=== PATIENT | male | born 1970 | race Caucasian/White ===

== ENCOUNTER → 2017-04-29 | Outpatient (CLI) | payer BC ==
--- NOTE | 2017-04-29 15:35 | US ---
EXAMINATION TYPE: US scrotum with doppler. Grayscale and color Doppler Duplex imaging performed of t he scrotum. DATE OF EXAM: 04/29/2017 COMPARISON: NONE CLINICAL HISTORY: Swelling of Left Testical N50.89. EXAM MEASUREMENTS: TESTICLES: Right Testicle: 5.0 x 2.7 x 3.1 cm Left Testicle: 4.6 x 2.2 x 3.5 cm EPIDIDYMIS HEAD: Right Epididymis: 1.1 x 1.2 x 0.7 cm Left Epididymis: 1.3 x 0.9 x 0.8 cm Doppler performed to assess for testicular vascularity; good bilateral color flow and waveforms are s een. Presence of hydroceles: no Presence of varicoceles: mild varicoceles left inguina Comparison images at end of study shows symmetric blood flow to both testicles. IMPRESSION: No suspicious scrotal fluid collections or hydroceles. No worrisome intratesticular mass is present.
== END | disposition home or self-care (01) ==
LOC: RADUSWWP 14:41
PROVIDERS: ATTEND Family Medicine
DX: N50.89 Other specified disorders of the male genital organs (principal)
CPT/HCPCS: 76870; 93975

== ENCOUNTER 2024-08-16 03:24 | Emergency (ER) | payer BC ==
--- NOTE | 2024-08-16 04:30 | ED ---
SOB HPI - General Chief Complaint: Shortness of Breath Stated Complaint: Chest Pain,ROCK Time Seen by Provider: 08/16/24 03:34 Source: patient Mode of arrival: wheelchair Limitations: no limitations - History of Present Illness Initial Comments: This patient is a 54-year-old man who presents to have evaluation for cough and congestion with some yellow sputum, going back approximately 3 to 4 days now. The patient states he has also had a little bit of chest tightness bilaterally. Patient tonight was noting fever and chills as well. He states that when he thinks back he has had intermittent symptoms coming and going since about Page time. Over the past 3 to 4 days the symptoms recurred and he feels worse lying down. MD Complaint: shortness of breath, cough Onset/Timin -: days(s) Severity: mild Quality: dull Consistency: intermittent Improves With: nothing Worsens With: lying flat Associated Symptoms: fever, cough, sputum production Treatments Prior to Arrival: none - Related Data Home Oxygen Therapy: No Previous Rx's Medication Instructions Recorded Azithromycin [Zithromax] 0 mg PO DIRECTED #6 tab 08/16/24 Allergies Allergy/AdvReac Type Severity Reaction Status Date / Time No Known Allergies Allergy Verified 08/16/24 03:31 Review of Systems ROS Statement: Those systems with pertinent positive or pertinent negative responses have been documented in the HPI. ROS Other: All systems not noted in ROS Statement are negative. Constitutional: Reports: fever, chills Respiratory: Reports: cough. Denies: dyspnea, wheezes, hemoptysis Cardiovascular: Reports: chest pain. Denies: palpitations, edema, syncope Gastrointestinal: Denies: abdominal pain, nausea, vomiting, diarrhea Genitourinary: Denies: dysuria, hematuria Musculoskeletal: Denies: back pain Skin: Denies: rash Neurological: Denies: headache, weakness, numbness Past Medical History Past Medical History: Hypertension History of Any Multi-Drug Resistant Organisms: None Reported Past Surgical History: No Surgical Hx Reported Past Psychological History: No Psychological Hx Reported Smoking Status: Former smoker, Vaper Past Alcohol Use History: None Reported Past Drug Use History: None Reported General Exam Limitations: no limitations General appearance: alert, in no apparent distress Head exam: Present: atraumatic, normocephalic Eye exam: Present: normal appearance. Absent: scleral icterus, conjunctival injection Neck exam: Present: normal inspection Respiratory exam: Present: rhonchi. Absent: respiratory distress, wheezes, rales, stridor, accessory muscle use, decreased breath sounds, prolonged expiratory Cardiovascular Exam: Present: normal rhythm, tachycardia, normal heart sounds. Absent: systolic murmur, diastolic murmur, rubs, gallop GI/Abdominal exam: Present: soft. Absent: distended, tenderness, guarding, rebound, rigid, mass Extremities exam: Present: normal inspection, normal capillary refill. Absent: pedal edema, calf tenderness Back exam: Present: normal inspection. Absent: CVA tenderness (R), CVA tenderness (L) Neurological exam: Present: alert Skin exam: Present: warm, dry, intact, normal color. 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 - Lab Data Result diagrams: 08/16/24 03:46 08/16/24 03:46 Lab Results 08/16/24 08/16/24 08/16/24 Range/Units 03:46 03:46 03:46 WBC 18.68 H (4.50-10.00) 10*3/uL RBC 5.08 (4.40-5.60) 10*6/uL Hgb 15.5 (13.0-17.0) g/dL Hct 43.9 (39.6-50.0) % MCV 86.4 (80.0-97.0) fL MCH 30.5 (27.0-32.0) pg MCHC 35.3 (32.0-37.0) g/dL Plt Count 240 (140-440) 10*3/uL MPV 9.6 (9.5-12.2) fL Immature Gran % (Auto) 0.5 % Neutrophils % 89.6 % Lymphocytes % 4.9 % Monocytes % 3.3 % Eosinophils % 1.3 % Basophils % 0.4 % Immature Gran # 0.10 H (0.00-0.04) 10*3/uL Neutrophils # 16.71 H (1.80-7.70) 10*3/uL Lymphocytes # 0.92 (0.90-5.00) 10*3/uL Monocytes # 0.62 (0.20-1.00) 10*3/uL Eosinophils # 0.25 (0.04-0.35) 10*3/uL Basophils # 0.08 (0.00-0.10) 10*3/uL PT 10.3 (10.0-12.5) sec INR 0.9 (<1.2) APTT 24.5 (22.0-30.0) sec D-Dimer 0.42 (<0.60) mg/L FEU Sodium 136 L (137-145) mmol/L Potassium 4.7 (3.5-5.1) mmol/L Chloride 103 (98-107) mmol/L Carbon Dioxide 23 (22-30) mmol/L Anion Gap 10 mmol/L BUN 19 (9-20) mg/dL Creatinine 1.08 (0.66-1.25) mg/dL Est GFR (CKD-EPI)AfAm >90 (>60 ml/min/1.73 sqM) Est GFR (CKD-EPI)NonAf 78 (>60 ml/min/1.73 sqM) Glucose 134 H (74-99) mg/dL Plasma Lactic Acid Justin (0.7-2.0) mmol/L Calcium 9.9 (8.4-10.2) mg/dL Total Bilirubin 0.7 (0.2-1.3) mg/dL AST 40 (17-59) U/L ALT 26 (4-49) U/L Alkaline Phosphatase 66 (38-126) U/L Troponin I (0.000-0.034) ng/mL NT-Pro-B Natriuret Pep <20 pg/mL Total Protein 7.5 (6.3-8.2) g/dL Albumin 4.3 (3.5-5.0) g/dL Influenza Type A (PCR) (Not Detectd) Influenza Type B (PCR) (Not Detectd) RSV (PCR) (Not Detectd) SARS-CoV-2 (PCR) (Not Detectd) 08/16/24 08/16/24 08/16/24 Range/Units 03:46 04:14 05:52 WBC (4.50-10.00) 10*3/uL RBC (4.40-5.60) 10*6/uL Hgb (13.0-17.0) g/dL Hct (39.6-50.0) % MCV (80.0-97.0) fL MCH (27.0-32.0) pg MCHC (32.0-37.0) g/dL Plt Count (140-440) 10*3/uL MPV (9.5-12.2) fL Immature Gran % (Auto) % Neutrophils % % Lymphocytes % % Monocytes % % Eosinophils % % Basophils % % Immature Gran # (0.00-0.04) 10*3/uL Neutrophils # (1.80-7.70) 10*3/uL Lymphocytes # (0.90-5.00) 10*3/uL Monocytes # (0.20-1.00) 10*3/uL Eosinophils # (0.04-0.35) 10*3/uL Basophils # (0.00-0.10) 10*3/uL PT (10.0-12.5) sec INR (<1.2) APTT (22.0-30.0) sec D-Dimer (<0.60) mg/L FEU Sodium (137-145) mmol/L Potassium (3.5-5.1) mmol/L Chloride (98-107) mmol/L Carbon Dioxide (22-30) mmol/L Anion Gap mmol/L BUN (9-20) mg/dL Creatinine (0.66-1.25) mg/dL Est GFR (CKD-EPI)AfAm (>60 ml/min/1.73 sqM) Est GFR (CKD-EPI)NonAf (>60 ml/min/1.73 sqM) Glucose (74-99) mg/dL Plasma Lactic Acid Justin 1.6 (0.7-2.0) mmol/L Calcium (8.4-10.2) mg/dL Total Bilirubin (0.2-1.3) mg/dL AST (17-59) U/L ALT (4-49) U/L Alkaline Phosphatase (38-126) U/L Troponin I <0.012 (0.000-0.034) ng/mL NT-Pro-B Natriuret Pep pg/mL Total Protein (6.3-8.2) g/dL Albumin (3.5-5.0) g/dL Influenza Type A (PCR) Not Detected (Not Detectd) Influenza Type B (PCR) Not Detected (Not Detectd) RSV (PCR) Not Detected (Not Detectd) SARS-CoV-2 (PCR) Not Detected (Not Detectd) - EKG Data -: EKG Interpreted by [place] EKG shows normal: sinus rhythm, axis (Normal), intervals (Normal), QRS complexes (Normal) Rate: tachycardia (Rate 127 bpm) Interpretation: nonspecific ST-T wave changes Disposition Clinical Impression: Pneumonia Disposition: HOME SELF-CARE Condition: Good Instructions (If sedation given, give patient instructions): Pneumonia (ED) Prescriptions: Azithromycin [Zithromax] 0 mg PO DIRECTED #6 tab Is patient prescribed a controlled substance at d/c from ED?: No Referrals: Eddie Tucker MD [Primary Care Provider] - 1-2 days
--- NOTE | 2024-08-16 04:51 | XR ---
EXAM: XR Chest, 2 Views CLINICAL HISTORY: ITS.REASON XR Reason: fever/cough TECHNIQUE: Frontal and lateral views of the chest. COMPARISON: No relevant prior studies available. FINDINGS: Lungs: Unremarkable. No consolidation. Pleural space: Unremarkable. No pneumothorax. Heart: Unremarkable. No cardiomegaly. Mediastinum: Unremarkable. Normal mediastinal contour. Bones/joints: Degenerative changes are seen in the spine and shoulders. No acute fracture. IMPRESSION: No acute findings in the chest.
[2024-08-16 04:57] LABS: Influenza A Not Detected (Not Detectd); Influenza B Not Detected (Not Detectd); RSV Not Detected (Not Detectd)
[2024-08-16 05:17] VITALS: RESP 18
[2024-08-16] MEDS: AZITHROMYCIN 500 MG TAB PO STA (06:04)
[2024-08-16 06:07] LABS: Basophils # (A) 0.08 10*3/uL (0.00-0.10); Basophils % (A) 0.4 %; Eosinophils # (A) 0.25 10*3/uL (0.04-0.35); Eosinophils % (A) 1.3 %; HCT 43.9 % (39.6-50.0); HGB 15.5 g/dL (13.0-17.0); Lymphocytes # (A) 0.92 10*3/uL (0.90-5.00); Lymphocytes % (A) 4.9 %; MCH 30.5 pg (27.0-32.0); MCHC 35.3 g/dL (32.0-37.0); MCV 86.4 fL (80.0-97.0); Mean Platelet Volume 9.6 fL (9.5-12.2); Monocytes # (A) 0.62 10*3/uL (0.20-1.00); Monocytes % (A) 3.3 %; Neutrophils # (A) 16.71 10*3/uL (1.80-7.70); Neutrophils % (A) 89.6 %; Platelet Count 240 10*3/uL (140-440); RBC 5.08 10*6/uL (4.40-5.60); RDW 12.4 % (11.5-14.5); WBC 18.68 10*3/uL (4.50-10.00)
[2024-08-16 06:11] LABS: ALT 26 U/L (4-49); African American GFR (CKD) >90 (>60 ml/min/1.73 sqM); Albumin 4.3 g/dL (3.5-5.0); Anion Gap 10 mmol/L; Blood Urea Nitrogen 19 mg/dL (9-20); Calcium 9.9 mg/dL (8.4-10.2); Carbon Dioxide 23 mmol/L (22-30); Chloride 103 mmol/L (98-107); Glucose 134 mg/dL (74-99); Non-African American GFR(CKD) 78 (>60 ml/min/1.73 sqM); Sodium 136 mmol/L (137-145); Total Bilirubin 0.7 mg/dL (0.2-1.3); Total Protein 7.5 g/dL (6.3-8.2)
[2024-08-16 06:20] LABS: NT-Pro-B-Type Natriuretic Pept <20 pg/mL
[2024-08-16 06:22] LABS: AST 40 U/L (17-59); Alkaline Phosphatase 66 U/L (38-126); Potassium 4.7 mmol/L (3.5-5.1)
[2024-08-16 06:26] LABS: INR 0.9 (<1.2); Partial Thromboplastin Time 24.5 sec (22.0-30.0); Prothrombin Time 10.3 sec (10.0-12.5)
[2024-08-16 06:47] VITALS: TEMP 100.1
[2024-08-16] MEDS: ACETAMINOPHEN TAB 325 MG TAB PO STA (07:08)
[2024-08-16 07:13] VITALS: BP 122/74; PULSE 105
== END 2024-08-16 07:29 | disposition home or self-care (01) ==
LOC: EC 03:24
DX: J18.9 Pneumonia, unspecified organism (principal); F17.290 Nicotine dependence, other tobacco product, uncomplicated
CPT/HCPCS: 36415; 93005; 85379; 83880; 80053; 83605; 84484; 85025; 85610; 85730; 87040; 87636; 71046; 99285; 96365; J0696